=== PATIENT | male | born 1980 | race Caucasian/White ===

== ENCOUNTER → 2019-02-23 | Outpatient (CLI) | payer BC ==
--- NOTE | 2019-02-23 12:12 | CT ---
EXAMINATION TYPE: CT sinus wo con DATE OF EXAM: 02/23/2019 COMPARISON: None HISTORY: Chronic sinusitis CT DLP: 636.[address] of the paranasal sinuses was performed in the axial and coronal planes. Bone and soft tissue settings are submitted. The paranasal sinuses demonstrate normal aeration and development. The paranasal sinuses are free of mucosal thickening or air fluid level. The osteal meatal units are patent bilaterally. The nasal septum is midline. No bony destructive changes are seen within the field of view. IMPRESSION: Normal unenhanced CT of the paranasal sinuses.
== END | disposition home or self-care (01) ==
LOC: RADCTMAIN 11:24
PROVIDERS: ATTEND Otolaryngology
DX: J32.9 Chronic sinusitis, unspecified (principal)
CPT/HCPCS: 70486

== ENCOUNTER 2019-08-04 18:03 | Emergency (ER) | payer BC ==
[2019-08-04 18:09] VITALS: BP 134/87; PULSE 91; RESP 18; TEMP 98.1
[2019-08-04] MEDS ORDERED: LIDOCAINE 1% INJ 10MG/ML (20 ML MDV) SQ ONE (18:10)
--- NOTE | 2019-08-04 18:34 | ED ---
Wound/Laceration HPI - General Chief Complaint: Wound/Laceration Stated Complaint: Finger Lac Time Seen by Provider: 08/04/19 18:09 Source: patient Mode of arrival: ambulatory Limitations: no limitations - History of Present Illness Initial Comments: Patient is a 38-year-old male presenting to the emergency department with a chief complaint of a laceration. Patient reports she was using a circular saw to cut wood when he lacerated his left second digit. Patient reports minimal pain at this time. Reports the bleeding assess resolved. States his tetanus is up-to-date. Has full range of motion the finger. Denies taking medication to alleviate the pain. States the incident occurred about one hour prior to arrival. - Related Data Allergies Allergy/AdvReac Type Severity Reaction Status Date / Time No Known Allergies Allergy Verified 08/04/19 18:09 Review of Systems ROS Statement: Those systems with pertinent positive or pertinent negative responses have been documented in the HPI. ROS Other: All systems not noted in ROS Statement are negative. Past Medical History Past Medical History: Hyperlipidemia History of Any Multi-Drug Resistant Organisms: None Reported Past Surgical History: Orthopedic Surgery Additional Past Surgical History / Comment(s): shoulder, foot Past Psychological History: No Psychological Hx Reported Smoking Status: Never smoker Past Alcohol Use History: Occasional Past Drug Use History: None Reported General Exam Limitations: no limitations General appearance: alert, in no apparent distress Head exam: Present: atraumatic, normocephalic, normal inspection Eye exam: Present: normal appearance, PERRL, EOMI Pupils: Present: normal accommodation ENT exam: Present: normal exam, normal oropharynx, mucous membranes moist Neck exam: Present: normal inspection, full ROM Respiratory exam: Present: normal lung sounds bilaterally. Absent: respiratory distress, wheezes Cardiovascular Exam: Present: regular rate, normal rhythm, normal heart sounds Extremities exam: Present: full ROM (Full range of motion in the left index finger.), tenderness (Minimal tenderness at the site of injury.), normal capillary refill, other (+2 ulnar and radial pulses bilaterally.). Absent: normal inspection (irregular shaped laceration on the palmar aspect left second digit. No signs of visible bone or tendons.) Back exam: Present: normal inspection, full ROM Neurological exam: Present: alert, oriented X3 Psychiatric exam: Present: normal affect, normal mood Skin exam: Present: warm, dry, intact, normal color Course Vital Signs 08/04/19 18:05 Temperature 98.1 F Pulse Rate 91 Respiratory 18 Rate Blood Pressure 134/87 O2 Sat by Pulse 100 Oximetry Procedures - Laceration Laceration #1 Consent Obtained: verbal consent Indication: laceration Site: other (Finger) Size (cm): 3 Description: irregular, clean Depth: simple, single layer Sedation/Analgesia: none Anesthetic Used: lidocaine 1% Anesthesia Technique: nerve block Amount (mls): 5 Pre-repair: wound explored, irrigated extensively, deep structures intact Type of Sutures: nylon Number of Sutures: 5 Technique: simple, interrupted Patient Tolerated Procedure: well, no complications - Nerve Block Consent Obtained: verbal consent Local Anesthetic Used: Lidocaine 1% Amount of anesthesia used: 5 Side: left Nerve Blocks: digital Procedure Successful: Yes Complications: none Patient Tolerated Procedure: well, no complications Medical Decision Making - Medical Decision Making Patient is a 38-year-old male presenting to emergency Department with chief complaint of laceration. Patient lacerated his left second digit on a circular saw. On exam there is an irregular laceration approximately 3 cm in size. Patient is neurovascularly intact the left second digit with full range of motion. X-ray to rule out foreign body was obtained and show no signs of foreign body. Laceration site was repaired with 5 sutures. Patient tolerated the procedure well. Return parameters thoroughly discussed the patient was understanding and agreeable. Advised to return to the ED for suture removal in 7-10 days. Case discussed with physician. Tetanus up-to-date. Disposition Clinical Impression: Laceration Disposition: HOME SELF-CARE Condition: Stable Instructions (If sedation given, give patient instructions): Care For Your Stitches (DC), Laceration (DC) Additional Instructions: Return to emergency department 7-10 days for suture removal. Follow wound care instructions. Is patient prescribed a controlled substance at d/c from ED?: No Referrals: Irving Mosley DO [Primary Care Provider] - 1-2 days Time of Disposition: 19:07
--- NOTE | 2019-08-04 18:51 | XR ---
EXAMINATION TYPE: XR finger LT DATE OF EXAM: 08/04/2019 COMPARISON: NONE HISTORY: Left second duration digit laceration with saw blade. Rule out foreign body. TECHNIQUE: 3 views of the left second digit were obtained. FINDINGS/IMPRESSION: There is subtle lucency of the tuft of the left second distal phalanx suspicious for nondisplaced acute fracture however soft tissue swelling is seen more proximally of the left sec ond digit. Correlate with injury location and pain. No radiopaque foreign body seen.
== END 2019-08-04 19:26 | disposition home or self-care (01) ==
LOC: EC 18:03
DX: S61.211A Laceration without foreign body of left index finger without damage to nail, initial encounter (principal); W31.2XXA Contact with powered woodworking and forming machines, initial encounter; Y93.89 Activity, other specified; Y92.009 Unspecified place in unspecified non-institutional (private) residence as the place of occurrence of the external cause
CPT/HCPCS: 73140; 99283; 12002; J2001

== ENCOUNTER → 2020-03-29 | Outpatient (CLI) | payer BC ==
--- NOTE | 2020-03-29 11:11 | CT ---
EXAMINATION TYPE: CT abdomen pelvis wo con DATE OF EXAM: 03/29/2020 COMPARISON: None HISTORY: 39-year-old male K57.90, Diverticulitis CT DLP: 417.7 mGycm. Automated exposure control for dose reduction was used. TECHNIQUE: Contiguous axial scanning of the abdomen and pelvis without IV contrast. Coronal and sagit uday reconstructions performed. FINDINGS: Heart normal size without pericardial effusion. Lung bases clear without pleural effusion. 2.0 cm cyst in the posterior right hepatic dome. Otherwise, noncontrast appearance of the liver, gallbladder, adrenal glands, kidneys, and pancreas sh ow no gross abnormal mobility. Spleen mildly enlarged measuring 14.0 cm within inferior splenule. No dilated small bowel, free fluid, or free air. Scattered nonenlarged mesenteric lymph nodes. Oral contrast material has just entered the ascending colon. The appendix is not discretely visualize d. No secondary findings of acute appendicitis. Moderate to large stool burden. Redundant sigmoid col on. No pericolonic inflammatory change. Prominent distention of the urinary bladder. Prostate gland enlargement 5.2 cm wide. No abnormal flui d collection in the pelvis or pelvic lymphadenopathy. Bones: Mild degenerative change of both hips. Mild degenerative disc disease L5-S1. IMPRESSION: 1. Moderate to large stool burden. Correlate for constipation. Redundant sigmoid colon. No evidence for diverticulitis. 2. Mild splenomegaly at 14.0 cm. 3. Prostatomegaly at 5.2 cm wide.
== END | disposition home or self-care (01) ==
LOC: RADCTMAIN 08:54
PROVIDERS: ATTEND Family Medicine
DX: Q43.8 Other specified congenital malformations of intestine (principal); N40.0 Benign prostatic hyperplasia without lower urinary tract symptoms; R16.1 Splenomegaly, not elsewhere classified
CPT/HCPCS: 74176

== ENCOUNTER 2024-05-21 08:46 | Day surgery (SDC) | payer OTHER ==
[2024-05-19 15:48] VITALS: BMI 28.4
[2024-05-21 09:06] VITALS: TEMP 97.5
[2024-05-21] MEDS: IV FLUID CONTINUATION 1,000 ML IV ONE (09:14)
[2024-05-21] MEDS: LACTATED RINGERS 1,000 ML IV SCH (09:16)
[2024-05-21] MEDS ORDERED: PROPOFOL 10 MG/ML 20 ML VIAL IV ONE (09:38)
--- NOTE | 2024-05-21 10:06 | P.PCN ---
Date of Procedure: 05/21/24 Preoperative Diagnosis: History of colon polyp Postoperative Diagnosis: Sigmoid colon polyp Ascending colon polyp Procedure(s) Performed: Colonoscopy with hot snare polypectomy Anesthesia: MAC Surgeon: Ophelia Wang Pathology: other (Ascending colon polyp, sigmoid colon polyp) Condition: stable Disposition: same day Indications for Procedure: 43-year-old male presents for colonoscopy. He has history of colon polyps that were removed about 10 years ago. Denies any blood in the stool. No family hi story of colon cancer risks, benefits and alternatives were provided to the patient. All questions answered. Operative Findings: Ascending colon polyp Sigmoid colon Description of Procedure: The patient was brought to the endoscopy suite and placed in left lateral decubitus position and adequate sedation was achieved using conscious sedation. Digital rectal exam was performed and mild internal hemorrhoids were palpated. An endoscope was then placed in the rectum and advanced to the cecum as identified by landmarks including the appendiceal orifice and the ileocecal valve. The prep was good. The colonoscope was then slowly withdrawn, examining for any mucosal abnormalities. The cecum, ascending, transverse, descending and sigmoid colon were visualized adequately. There were no large neoplastic lesions noted throughout the colon. Ascending colon polyp was noted this was removed with hot snare polypectomy. Similarly, sigmoid colon polyp was noted and this was removed with hot snare polypectomy. Hemostasis was noted to be maintained. No evidence of diverticulosis. Hemostasis was maintained. Retroflexion was performed in the rectum and internal hemorrhoids. Excess air was removed, the colonoscope withdrawn and the procedure terminated. The patient was then transferred to the recovery unit in stable condition. Repeat colonoscopy should be performed in 5 years.
[2024-05-21 10:08] VITALS: RESP 16
[2024-05-21 10:22] VITALS: BP 149/87; PULSE 50
[2024-05-21] MEDS: ONDANSETRON 4 MG/2 ML VIAL IVP STA (10:22)
== END 2024-05-21 10:58 | disposition home or self-care (01) ==
LOC: ORWHC2ENDO 08:46
PROVIDERS: ATTEND Surgery
DX: Z12.11 Encounter for screening for malignant neoplasm of colon (principal); D12.2 Benign neoplasm of ascending colon; D12.5 Benign neoplasm of sigmoid colon; E78.5 Hyperlipidemia, unspecified; J30.2 Other seasonal allergic rhinitis; Z86.0100 Personal history of colon polyps, unspecified
CPT/HCPCS: 88305; 45380; 45385; J2405; J2704